=== PATIENT | male | born 1950 | race Caucasian/White ===

== ENCOUNTER 2019-01-17 08:45 | Day surgery (SDC) | payer MEDICARE, BC ==
[~2019-01-17 08:45] MED LIST: LACTATED RINGERS 1,000 ML IV SCH; LIDOCAINE 1% 20 ML VIAL (10MG/ML) FOR IV START INTRADERMA PRN
[2019-01-17 09:34] VITALS: TEMP 97.4
[2019-01-17] MEDS ORDERED: LIDOCAINE 1% INJ 10MG/ML (20 ML MDV) ONE (10:47)
[2019-01-17] MEDS ORDERED: PROPOFOL 10 MG/ML 20 ML VIAL IV ONE (10:47)
--- NOTE | 2019-01-17 11:19 | P.PCN ---
Date of Procedure: 01/17/19 Procedure(s) Performed: Procedure: Colonoscopy. Preoperative diagnosis: Screening for neoplasia, recent has history of polyps. Postoperative diagnosis: Exam of the colon and terminal ileum within normal limits. Preparation: HalfLytely prep. Sedation: Was provided by anesthesia. Brief clinical history: The patient is a 68-year-old male who is scheduled for this evaluation for screening for neoplasia because of history of polyps. His first exam was in 2008 and he had a second exam in 2014. The patient has been having some changes over the last year or 2 in his bowels with more frequent and more urgent bowel movements but no bleeding or extraintestinal manifestations of inflammatory bowel disease. No definite dietary triggers or associated alarm symptoms. Procedure: With the patient on his left lateral decubitus position and after informed consent and adequate sedation, the perianal area was inspected and it did not show any fissures or fistulas. There were no masses felt on digital rectal examination. The Olympus CFH 190L video colonoscope was then inserted in the rectum in the usual fashion and advanced to the cecum. I intubated the ileocecal valve and examined the terminal ileum. Terminal ileum and colon appeared healthy with no edema, erythema, friability, ulceration, exudation or spontaneous bleeding. No polyps or tumors were seen or any obvious diverticular disease. I retroflexed the endoscope in the rectum before the endoscope was withdrawn. Low-grade internal hemorrhoids were noted with no bleeding. The patient tolerated the procedure well. Plan: The patient was reassured. He will follow-up with you as planned and I recommended repeat exam in 5 years.
[2019-01-17 11:24] VITALS: RESP 18
[2019-01-17 11:43] VITALS: BP 124/81; PULSE 72
== END 2019-01-17 11:55 | disposition home or self-care (01) ==
LOC: ORWHC2ENDO 08:45
DX: Z12.11 Encounter for screening for malignant neoplasm of colon (principal); K64.8 Other hemorrhoids; Z86.010 Personal history of colon polyps
CPT/HCPCS: J2001; J2704; G0105; 45378